=== PATIENT | female | born 1940 | race Caucasian/White ===

== ENCOUNTER → 2023-11-07 09:52 | Outpatient (REF) | payer MEDICARE, SELFPAY ==
[2023-11-07 10:51] LABS: Urine Bacteria Few (Negative); Urine Red Blood Cell 0-2 /HPF (0-2)
[2023-11-07 12:23] LABS: TSH Reflex To Free T4 1.58 uIU/ml (0.47-4.68)
[2023-11-07 13:13] LABS: Blood Urea Nitrogen 19 mg/dl (7-17); Calcium 9.5 mg/dl (8.4-10.2); Carbon Dioxide 27 mmol/L (22-30); Chloride 99 mmol/L (98-107); Glucose 85 mg/dl (70-99); Potassium 4.3 mmol/L (3.5-5.1); Sodium 135 mmol/L (135-145); eGFR > 60.00
== END ==
LOC: REG 09:52
PROVIDERS: ATTENDING PHYSICIAN Nurse Practitioner Family; FAMILY PHYSICIAN Internal Medicine
DX: R10.31 Right lower quadrant pain (principal); R10.9 Unspecified abdominal pain; E03.9 Hypothyroidism, unspecified; R39.15 Urgency of urination
CPT/HCPCS: 80048; 81015; 84443; 87086

== ENCOUNTER → 2024-03-11 09:52 | Outpatient (REF) | payer MEDICARE, SELFPAY ==
[2024-03-11 11:50] LABS: Albumin 4.2 g/dl (3.5-5.0); Blood Urea Nitrogen 17 mg/dl (7-17); Calcium 9.7 mg/dl (8.4-10.2); Carbon Dioxide 27 mmol/L (22-30); Chloride 103 mmol/L (98-107); Glucose 91 mg/dl (70-99); Phosphorus 4.1 mg/dl (2.5-4.5); Potassium 4.6 mmol/L (3.5-5.1); Sodium 137 mmol/L (135-145); eGFR > 60.00
[2024-03-11 15:47] LABS: TSH 2.07 uIU/ml (0.47-4.68)
== END ==
LOC: REG 09:52
PROVIDERS: ATTENDING PHYSICIAN Internal Medicine Cardiovascular Disease; FAMILY PHYSICIAN Internal Medicine
DX: I42.0 Dilated cardiomyopathy (principal); R10.9 Unspecified abdominal pain; E03.9 Hypothyroidism, unspecified
CPT/HCPCS: 36415; 80069; 84443

== ENCOUNTER → 2024-03-12 09:03 | Outpatient (REF) | payer MEDICARE, SELFPAY | LOC: RAD 09:03 | PROVIDERS: ATTENDING PHYSICIAN Internal Medicine Cardiovascular Disease; FAMILY PHYSICIAN Internal Medicine | DX: I42.0 Dilated cardiomyopathy (principal); R10.9 Unspecified abdominal pain | CPT/HCPCS: 74174; Q9967 ==

== ENCOUNTER → 2024-09-11 10:56 | Outpatient (REF) | payer MEDICARE, SELFPAY | LOC: RAD 10:56 | PROVIDERS: ATTENDING PHYSICIAN Internal Medicine; FAMILY PHYSICIAN Family Medicine | DX: R10.84 Generalized abdominal pain (principal); R19.8 Other specified symptoms and signs involving the digestive system and abdomen | CPT/HCPCS: 74019 ==

== ENCOUNTER → 2024-11-05 11:35 | Outpatient (REF) | payer MEDICARE, SELFPAY ==
[2024-11-05 18:48] LABS: % Basophils 0.4 % (0-2); % Eosinophils 1.3 % (0-6); % Immature Granulocytes 0.2 % (0-0.5); % Lymphocytes 23.8 % (20.5-51.1); % Monocytes 9.3 % (1.7-9.3); Absolute Eosinophils 0.1 10^3/uL (0-0.7); Absolute Lymphocytes 1.1 10^3/uL (1.2-3.4); Absolute Monocytes 0.4 10^3/uL (0.1-0.6); Hematocrit 41.3 % (37.0-47.0); Hemoglobin 13.4 g/dL (12.0-16.0); Mean Corp Hgb Conc. 32.4 g/dL (33.0-37.0); Mean Corpuscular Volume 92.4 fL (81.0-99.0); Nucleated Red Blood Cells % 0 %; Platelet Count 234 10^3/uL (130-400); Red Blood Cell Count 4.47 10^6/uL (4.20-5.40); Red Cell Dist. Width 13.7 % (11.5-14.5); White Blood Cell Count 4.6 10^3/uL (4.8-10.8)
== END ==
LOC: CLAB 11:35
PROVIDERS: ATTENDING PHYSICIAN Nurse Practitioner Adult Health; FAMILY PHYSICIAN Family Medicine
DX: L03.114 Cellulitis of left upper limb (principal)
CPT/HCPCS: 85025

== ENCOUNTER → 2025-01-19 12:04 | Outpatient (REF) | payer MEDICARE, SELFPAY ==
[2025-01-19 15:58] LABS: Urine Albumin Negative (Neg - Trace); Urine Bilirubin Negative (Negative); Urine Character Clear (Clear); Urine Color Yellow; Urine Glucose Negative (Negative); Urine Ketone Negative (Negative); Urine Leukocyte Negative (Negative); Urine Nitrite Negative (Negative); Urine Occult Blood 1+ (Negative); Urine Urobilinogen Negative (Neg - 1+)
[2025-01-19 16:37] LABS: Urine Bacteria Few (Negative); Urine Mucus Few; Urine Red Blood Cell 0-2 /HPF (0-2); Urine Squamous Cell 0-2 /LPF (Few); Urine White Cell 0-2 /HPF (0-5)
== END ==
LOC: CLAB 12:04
PROVIDERS: ATTENDING PHYSICIAN Nurse Practitioner Adult Health
DX: R35.0 Frequency of micturition (principal)
CPT/HCPCS: 81003; 81015

== ENCOUNTER → 2025-03-26 09:20 | Outpatient (REF) | payer MEDICARE, SELFPAY ==
[2025-03-26 10:19] LABS: % Basophils 0.7 % (0-2); % Eosinophils 0.2 % (0-6); % Immature Granulocytes 0.2 % (0-0.5); % Lymphocytes 20.4 % (20.5-51.1); % Monocytes 10.2 % (1.7-9.3); % Neutrophils 68.3 % (42.2-75.2); Absolute Lymphocytes 0.8 10^3/uL (1.2-3.4); Absolute Monocytes 0.4 10^3/uL (0.1-0.6); Absolute Neutrophils 2.8 10^3/uL (1.4-6.5); Hemoglobin 13.3 g/dL (12.0-16.0); Mean Corp Hgb Conc. 33.3 g/dL (33.0-37.0); Mean Corpuscular Hgb 29.8 pg (27.0-31.0); Mean Corpuscular Volume 89.7 fL (81.0-99.0); Mean Platelet Volume 9.4 fL (7.4-10.4); Nucleated Red Blood Cells % 0 %; Platelet Count 232 10^3/uL (130-400); Red Blood Cell Count 4.46 10^6/uL (4.20-5.40); Red Cell Dist. Width 13.3 % (11.5-14.5); White Blood Cell Count 4.1 10^3/uL (4.8-10.8)
[2025-03-26 10:52] LABS: ALT (SGPT) < 10 U/L (0-35); AST (SGOT) 20 U/L (14-36); Albumin 4.4 g/dl (3.5-5.0); Alkaline Phosphatase 72 U/L (38-126); Blood Urea Nitrogen 19 mg/dl (7-17); Calcium 9.7 mg/dl (8.4-10.2); Carbon Dioxide 28 mmol/L (22-30); Chloride 106 mmol/L (98-107); Glucose 87 mg/dl (70-99); HDL Cholesterol 70 mg/dl; LDL Cholesterol, Calculated 121 mg/dl; Potassium 4.5 mmol/L (3.5-5.1); Sodium 139 mmol/L (135-145); Total Bilirubin 0.8 mg/dl (0.2-1.3); Total Cholesterol 202 mg/dl (50-199); Total Protein 7.3 g/dl (6.3-8.2); Triglyceride 59 mg/dl (10-149); Very Low Density Lipoprotein 11 mg/dl (0-30); eGFR > 60.00
[2025-03-26 11:10] LABS: Vitamin D, 25-OH*** 27.5 ng/mL (30-80)
[2025-03-26 11:24] LABS: TSH Reflex To Free T4 1.42 uIU/ml (0.47-4.68)
== END ==
LOC: REG 09:20
PROVIDERS: ATTENDING PHYSICIAN Family Medicine
DX: E03.9 Hypothyroidism, unspecified (principal); E55.9 Vitamin D deficiency, unspecified; Z13.1 Encounter for screening for diabetes mellitus; Z13.6 Encounter for screening for cardiovascular disorders; R53.83 Other fatigue
CPT/HCPCS: 36415; 80053; 80061; 82306; 84443; 85025

== ENCOUNTER → 2025-04-07 09:16 | Outpatient (REF) | payer MEDICARE, SELFPAY | LOC: RCS 09:16 | PROVIDERS: ATTENDING PHYSICIAN Internal Medicine Cardiovascular Disease; FAMILY PHYSICIAN Family Medicine | DX: I34.0 Nonrheumatic mitral (valve) insufficiency (principal) | CPT/HCPCS: 93306 ==

== ENCOUNTER → 2025-06-25 09:50 | Outpatient (REF) | payer MEDICARE, SELFPAY | LOC: RAD 09:50 | PROVIDERS: ATTENDING PHYSICIAN Internal Medicine; FAMILY PHYSICIAN Family Medicine | DX: R10.9 Unspecified abdominal pain (principal); K59.09 Other constipation | CPT/HCPCS: 74018 ==